=== PATIENT | male | born 1995 | race African-American/Black ===

== ENCOUNTER 2022-06-29 05:57 | Emergency (ER) | payer SELFPAY ==
[2022-06-29 06:00] VITALS: BP 128/58; PULSE 69; RESP 16; TEMP 36.6; O2SAT 100
--- NOTE | 2022-06-29 07:17 | ED.GENADULT ---
HPI - General Adult General Chief complaint: Dental/Oral Stated complaint: Left facial swelling, gum swelling Time Seen by Provider: 06/29/22 06:53 History of Present Illness HPI narrative: 19-year-old male presenting to the emergency department for evaluation of left upper dental pain. Patient states he began having dental pain yesterday and then this morning when he woke up he noticed some left-sided facial swelling. Patient denies any difficulty breathing or swallowing. Patient does have associated dental caries. Patient states he does not have a dentist but patient will be provided information for dental follow-up. Related Data Allergies Allergy/AdvReac Type Severity Reaction Status Date / Time No Known Allergies Allergy Verified 06/29/22 06:02 Review of Systems Review of Systems: All systems reviewed & are unremarkable except as noted in HPI and below Exam Narrative: APPEARANCE: Well appearing, no pain, no distress, well-nourished. HEAD: normocephalic, atraumatic. Left upper mandible swelling EYES: PERRLA/EOMI, conjunctivae clear. NOSE: Normal no drainage Mouth: No abscess amenable to drainage. Patient does have a left upper molar cavity. No trismus EARS:TMS clear with good light reflex. THROAT: Pharynx clear, no exudate. NECK: Supple. No adenopathy, no masses. RESPIRATORY: Airway patent, respirations nonlabored. Clear to auscultation bilaterally, no rales, rhonchi, wheezing. CARDIOVASCULAR: Regular rate and rhythm without murmurs rubs or gallops. ABDOMINAL: Soft, nontender, nondistended, normal bowel sounds MUSCULOSKELETAL: Moves all extremities. Strength/ROM intact, No edema, No calf tenderness. NEURO: Alert. Cranial nerves II through XII intact. SKIN: Warm, dry. Normal Color, mild left facial swelling with no erythema Course Course Emergency Course: 19-year-old male with left facial swelling most likely due to dental caries. No abscess amenable to drainage. No trismus. Normal posterior pharynx no evidence of peritonsillar abscess. Patient will be started on antibiotics while in the Emergency Department. Patient will be discharged home with a prescription for clindamycin. Patient was encouraged of close follow-up with a dentist. Patient was also educated on reasons to return to the emergency department. All question concerns were addressed and patient was comfortable with the plan for discharge and close follow-up. Vital Signs Vital signs: Vital Signs Temperature 97.8 F 06/29/22 06:00 Pulse Rate 69 06/29/22 06:00 Respiratory Rate 16 06/29/22 06:00 Blood Pressure 128/58 L 06/29/22 06:00 Pulse Oximetry 100 06/29/22 06:00 Oxygen Delivery Room Air 06/29/22 06:00 Temperature 97.8 F 06/29/22 06:00 Pulse Rate 58 L 06/29/22 07:34 Respiratory Rate 16 06/29/22 07:34 Blood Pressure 127/67 06/29/22 07:34 Pulse Oximetry 100 06/29/22 07:34 Oxygen Delivery Room Air 06/29/22 06:00 Medical Decision Making Vital Signs Vital Signs: Vital Signs Temperature 97.8 F 06/29/22 06:00 Pulse Rate 69 06/29/22 06:00 Respiratory Rate 16 06/29/22 06:00 Blood Pressure 128/58 L 06/29/22 06:00 Pulse Oximetry 100 06/29/22 06:00 Oxygen Delivery Room Air 06/29/22 06:00 Temperature 97.8 F 06/29/22 06:00 Pulse Rate 58 L 06/29/22 07:34 Respiratory Rate 16 06/29/22 07:34 Blood Pressure 127/67 06/29/22 07:34 Pulse Oximetry 100 06/29/22 07:34 Oxygen Delivery Room Air 06/29/22 06:00 Discharge Plan Discharge Clinical Impression: Dental caries, Dental abscess Patient Disposition: Home, Self-Care Condition: Stable Instructions: Antibiotic Form, Dental Abscess (ED), Toothache (ED) Additional Instructions: Antibiotic as directed until completed. Have close follow-up with a dentist. If you have any worsening symptoms please call or return to the emergency department. Prescriptions: New clindamycin HCl 150 mg capsule 150 mg
[2022-06-29 07:34] VITALS: BP 127/67; PULSE 58; RESP 16; O2SAT 100
[2022-06-29] MEDS: CLINDAMYCIN HCL 150 MG CAP PO (07:34)
== END 2022-06-29 07:41 | disposition home or self-care (01) ==
PROVIDERS: Emergency Provider Emergency Medicine; PCP Family Medicine
DX: K04.7 Periapical abscess without sinus (principal); K02.9 Dental caries, unspecified
CPT/HCPCS: 99283; A9270

== ENCOUNTER 2024-05-02 14:35 | Emergency (ER) | payer SELFPAY ==
[2024-05-02 14:37] VITALS: BP 151/50; PULSE 65; RESP 16; TEMP 36.5; O2SAT 100
--- NOTE | 2024-05-02 17:44 | ED.DENTAL ---
HPI - Dental/Oral General Chief complaint: Dental/Oral Stated complaint: jaw pain Time Seen by Provider: 05/02/24 16:44 History of Present Illness HPI Narrative: Patient is a 29-year-old male who presents ER with dental pain. Left lower jaw near tooth number 22. Increased swelling. No fevers or chills. Able swallow without issue. Related Data Allergies Allergy/AdvReac Type Severity Reaction Status Date / Time No Known Allergies Allergy Verified 06/29/22 06:02 Review of Systems Constitutional: Constitutional: Reports no additional constitutional complaints ENT: Denies nasal congestion and Denies sore throat Comments: Dental pain PMFSH Past Medical History Medical History (Updated 05/02/24 @ 17:53 by Tae Savage MD) Healthy adult male Surgical History Surgical History (Updated 05/02/24 @ 17:46 by Tae Savage MD) No pertinent past surgical history Exam Narrative: GENERAL: Well-appearing, well-nourished, and in no acute distress. HEAD: Normocephalic, atraumatic. ENT: Mucous membranes moist. Swelling and pain at the base of tooth 22 but no fluctuant abscess. EXTREMITIES: Normal range of motion. No edema. NEURO: Alert and oriented x3. PSYCH: Normal mood and affect. Course Course Emergency Course: Discussed treatment plan. Discharged home. Vital Signs Vital signs: Vital Signs Temperature 97.7 F 05/02/24 14:37 Pulse Rate 65 05/02/24 14:37 Respiratory Rate 16 05/02/24 14:37 Blood Pressure 151/50 H 05/02/24 14:37 Pulse Oximetry 100 05/02/24 14:37 Temperature 97.7 F 05/02/24 14:37 Pulse Rate 65 05/02/24 14:37 Respiratory Rate 16 05/02/24 14:37 Blood Pressure 151/50 H 05/02/24 14:37 Pulse Oximetry 100 05/02/24 14:37 Discharge Plan Discharge Clinical Impression: Tooth ache Patient Disposition: Home, Self-Care Condition: Stable Instructions: Antibiotic Form, Toothache (ED) Additional Instructions: Return ER if you have worsening pain, cannot breathe, he cannot swallow, have additional concerns. Patient Language: Green[place]ic Prescriptions: New amoxicillin-pot clavulanate 875-125 mg tablet 1 tablet PO Q12H Qty: 14 0RF No Action clindamycin HCl 150 mg capsule 150 mg PO Q6H 7 Days Qty: 28 0RF Follow-up/Referrals: Dental Referral Line [Outside] PHYSICIAN,PASTRY COOK APPRENTICE [Primary Care Provider] -
[2024-05-02 18:07] VITALS: BP 144/76; PULSE 68; RESP 16; TEMP 36.6; O2SAT 99
== END 2024-05-02 18:07 | disposition home or self-care (01) ==
PROVIDERS: Emergency Provider Emergency Medicine
DX: K08.89 Other specified disorders of teeth and supporting structures (principal)
CPT/HCPCS: 99283